=== PATIENT | male | born 2000 | race African-American/Black ===

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

== ENCOUNTER → 2020-03-06 | Outpatient (CLI) | payer BC ==
[~2020-03-06] MED LIST: ONDA4TAB11 PO
--- NOTE | 2020-03-06 16:23 | Diagnostic Imaging Report ---
INDICATION: Pain in the right adkins and calf for 3 days. TIME OF EXAM: 1:08 PM FINDINGS: Frontal and lateral views right tibia and fibula were obtained. Alignment at the knee and ankle is normal. Tibia and fibula are intact. No fractures are seen. IMPRESSION: No acute bony abnormality is detected. Dictated by: Dictated on workstation # [id number]
== END ==
LOC: RAD FS 13:04
PROVIDERS: ATTEND Nurse Practitioner
DX: M79.661 Pain in right lower leg (principal)
CPT/HCPCS: 73590